=== PATIENT | female | born 1995 | race Caucasian/White ===

== ENCOUNTER 2022-04-24 01:31 | Emergency (ER) | payer BC ==
[2022-04-24] MEDS ORDERED: ONDANSETRON 4 MG/2 ML VIAL ONE (02:58)
[2022-04-24] MEDS ORDERED: FAMOTIDINE 20 MG/2 ML VIAL IV ONE (02:59)
[2022-04-24] MEDS ORDERED: DICYCLOMINE HCL 20 MG/2 ML AMP IM ONE (02:59)
[2022-04-24] MEDS ORDERED: NA CHLORIDE 0.9% 1,000 ML ONE (02:59)
[2022-04-24 03:20] LABS: Hematocrit 46.7 % (36.0-45.0); Lymphocytes % 14.3 % (15.3-44.8); MCV 87.3 fL (80-100); MPV 9.1 fL (7.6-11.3); RBC Red Blood Cell Count 5.35 M/uL (3.86-4.86)
[2022-04-24 03:42] LABS: Albumin 4.6 g/dL (3.4-5.0); Bilirubin Total 0.8 mg/dL (0.2-1.0); Protein, Total 8.5 g/dL (6.4-8.2)
[2022-04-24 03:56] LABS: SARS-COV-2 RT PCR NEGATIVE (NEGATIVE)
[2022-04-24 04:01] LABS: Urine Blood Trace-intact (Negative); Urine Glucose Negative (Negative); Urine Protein 1+ (Negative); Urine Specific Gravity >=1.030 (1.005-1.030); Urine pH 5.5 (5.0-7.0)
[2022-04-24 04:08] LABS: Urine Specific Gravity/Preg >1.030 (1.005-1.030)
[2022-04-24 04:08] LABS: Urine Bacteria <20 /HPF (<20); Urine RBC <5 /HPF (None Seen)
[2022-04-24] MEDS ORDERED: D5 0.45 NS 1,000 ML IV ONE (04:28)
--- NOTE | 2022-04-24 04:56 | ER ---
Nurse's Notes [facility] Name: Sadia Soto Age: 26 yrs Sex: Female : 1995 Arrival Date: 04/24/2022 Time: 01:35 Bed 11 Private MD: Fausto Mo Diagnosis: Abdominal pain, Generalized;Vomiting;Diarrhea, unspecified;Dysuria;Acute cystitis Presentation: 04/24 02:15 Chief complaint: Patient states: I have had severe stomach pain, nausea and vomiting kd3 for 3 days. I cannot keep anything down. I had diarrhea as well but that stopped on Wednesday. I am feeling very weak and sick. 02:15 Method Of Arrival: Wheelchair kd3 02:17 Coronavirus screen: Vaccine status: Patient reports receiving the 2nd dose of the covid kd3 vaccine. Ebola Screen: No symptoms or risks identified at this time. Initial Sepsis Screen: Does the patient meet any 2 criteria? No. Patient's initial sepsis screen is negative. Does the patient have a suspected source of infection? No. Patient's initial sepsis screen is negative. Risk Assessment: Do you want to hurt yourself or someone else? Patient reports no desire to harm self or others. Onset of symptoms was April 24, 2022. 02:17 Acuity: SATYA 3 kd3 Triage Assessment: 02:22 General: Appears uncomfortable, Behavior is calm, cooperative. Pain: Complains of pain kd3 in epigastric area. Neuro: Level of Consciousness is awake, alert, obeys commands, Oriented to person, place, time, situation. GI: Reports cramping, diarrhea, nausea, vomiting. 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 - Social history:: Smoking status: unknown. Screenin:23 [facility] ED Fall Risk Assessment (Adult) History of falling in the last 3 months, kd3 including since admission No falls in past 3 months (0 pts) Confusion or Disorientation No (0 pts) Intoxicated or Sedated No (0 pts) Impaired Gait No (0 pts) Mobility Assist Device Used No (0 pt) Altered Elimination No (0 pt) Score/Fall Risk Level 0 - 2 = Low Risk. Humpty Dumpty Scale Fall Assessment Tool (age< 18yrs) Fall Risk Score/ Level Low Fall Risk: </= 11 points Oriented to surroundings. Abuse screen: Denies threats or abuse. Denies injuries from another. Nutritional screening: No deficits noted. Tuberculosis screening: No symptoms or risk factors identified. Fall Risk No fall in past 12 months (0 pts). No secondary diagnosis (0 pts). No IV (0 pts). Ambulatory Aid- None/Bed Rest/Nurse Assist (0 pts). Gait- Normal/Bed Rest/Wheelchair (0 pts) Mental Status- Oriented to own ability (0 pts). Total Bravo Fall Scale indicates No Risk (0-24 pts). Assessment: 02:26 General: Appears uncomfortable, Behavior is calm, cooperative. Pain: Complains of pain kd3 in epigastric area. Neuro: Level of Consciousness is awake, alert, obeys commands, Oriented to person, place, time, situation. Cardiovascular: Patient's skin is warm and dry. GI: Reports diarrhea, nausea, vomiting. 03:13 GI: Pt is actively vomiting bile. kd3 Vital Signs: 02:17 BP 103 / 78; Pulse 70; Resp 19; Temp 98.6(O); Pulse Ox 100% on R/A; kd3 02:26 Weight 45.36 kg; kd3 03:42 BP 113 / 75; Pulse 79; Resp 16; Pulse Ox 100% on R/A; kd3 04:30 BP 90 / 60; Pulse 68; Resp 17; Pulse Ox 100% on R/A; kd3 05:14 BP 106 / 63; Pulse 71; Resp 17; Pulse Ox 100% on R/A; kd3 ED Course: 01:35 Patient arrived in ED. es 01:35 Fausto Mo DO is Private Physician. es 02:15 Carmel Ledesma, JAMES is Primary Nurse. kd3 02:18 Miquel Farley NP is PHCP. pm1 02:18 Nicholas Parisi MD is Attending Physician. pm1 02:22 Triage completed. kd3 02:23 Arm band placed on right wrist. kd3 02:24 Patient has correct armband on for positive identification. kd3 02:26 No provider procedures requiring assistance completed. kd3 03:12 CBC with Diff Sent. kd3 03:12 CMP Sent. kd3 03:12 Lipase Sent. kd3 03:12 COVID-19/FLU A+B Sent. kd3 04:21 CT Abd/Pelvis - IV Contrast Only In Process Unspecified. EDMS 04:55 Fausto Mo DO is Referral Physician. radha Administered Medications: 03:12 Drug: NS 0.9% 1000 ml Route: IV; Rate: 1 bolus; Site: left forearm; kd3 03:42 Follow up: IV Status: Completed infusion; IV Intake: 1000ml kd3 03:12 Drug: Pepcid (famotidine) 20 mg Route: IVP; Site: left forearm; kd3 03:43 Follow up: Response: No adverse reaction kd3 03:12 Drug: Zofran (Ondansetron) 4 mg Route: IVP; Site: left forearm; kd3 03:42 Follow up: Response: No adverse reaction; Nausea is decreased kd3 03:12 Drug: Bentyl (dicyclomine) 20 mg Route: IM; Site: right deltoid; kd3 03:42 Follow up: Response: No adverse reaction; Pain is decreased kd3 04:30 Drug: D5-1/2 NS 1000 ml Route: IV; Rate: bolus; Site: left forearm; kd3 05:21 Follow up: IV Status: Completed infusion; IV Intake: 1000ml kd3 05:21 Follow up: IV Status: Completed infusion kd3 05:21 Drug: Rocephin (cefTRIAXone) 1 grams Route: IV; Rate: per protocol; Site: left forearm; kd3 05:21 Follow up: IV Status: Completed infusion; IV Intake: 10ml kd3 05:21 Drug: Cipro (ciprofloxacin) 500 mg Route: PO; kd3 05:22 Follow up: Response: No adverse reaction kd3 Medication: 02:24 VIS not applicable for this client. kd3 Intake: 03:42 IV: 1000ml; Total: 1000ml. kd3 05:21 IV: 1000ml; Total: 2000ml. kd3 05:21 IV: 10ml; Total: 2010ml. kd3 Outcome: 04:55 Discharge ordered by . radha 05:22 Patient left the ED. kd3 Signatures: Dispatcher [employer] EDMS Nicholas Parisi MD MD cha Salyer, Edna es Marinas, Patrick, SERVICE DESK ASSOCIATE SERVICE DESK ASSOCIATE pm1 Carmel Ledesma, RN RN kd3 Corrections: (The following items were deleted from the chart) 02:25 02:22 Allergies: No Known Allergies; kd3 kd3
--- NOTE | 2022-04-24 04:56 | EDPHYS ---
Physician Documentation [facility] Name: Sadia Soto Age: 26 yrs Sex: Female : 1995 Arrival Date: 04/24/2022 Time: 01:35 Bed 11 Private MD: [facility] ED Physician Nicholas Parisi HPI: 04/24 02:26 This 26 yrs old Female presents to ER via Wheelchair with complaints of Vomiting, pm1 Abdominal Pain, Headache. 02:26 The patient presents to the emergency department with nausea, vomiting, diarrhea, pm1 abdominal pain, of the epigastric area, described as constant, crampy, and does not radiate. Onset: The symptoms/episode began/occurred 3 day(s) ago. Possible causes: unknown. The symptoms are aggravated by food , The symptoms are alleviated by nothing. Associated signs and symptoms: Pertinent positives: dysuria, headache, Pertinent negatives: Chest pain shortness of breath. Severity of symptoms: in the emergency department the symptoms are unchanged. The patient has not experienced similar symptoms in the past. The patient has not recently seen a physician. Patient with reported bilious vomiting and watery diarrhea for the past 3 days. 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 - Social history:: Smoking status: unknown. ROS: 02:26 Constitutional: Negative for fever, chills, and weight loss, Cardiovascular: Negative pm1 for chest pain, palpitations, and edema, Respiratory: Negative for shortness of breath, cough, wheezing, and pleuritic chest pain. 02:26 Back: Negative for injury and pain. 02:26 MS/Extremity: Negative for injury and deformity, Skin: Negative for injury, rash, and discoloration. 02:26 Abdomen/GI: Positive for abdominal pain, nausea, vomiting, and diarrhea, Negative for constipation. 02:26 : Positive for urinary symptoms. 02:26 Neuro: Positive for headache, Negative for dizziness. 02:26 All other systems are negative. Exam: 02:26 Constitutional: This is a well developed, well nourished patient who is awake, alert, pm1 and in no acute distress. Head/Face: Normocephalic, atraumatic. 02:26 Respiratory: Lungs have equal breath sounds bilaterally, clear to auscultation and percussion. No rales, rhonchi or wheezes noted. No increased work of breathing, no retractions or nasal flaring. 02:26 Back: No spinal tenderness. No costovertebral tenderness. Full range of motion. Skin: Warm, dry with normal turgor. Normal color with no rashes, no lesions, and no evidence of cellulitis. MS/ Extremity: Pulses equal, no cyanosis. Neurovascular intact. Full, normal range of motion. 02:26 Eyes: Exam is negative for acute changes, Periorbital structures: no acute changes, Extraocular movements: no acute changes, Conjunctiva: no acute changes. 02:26 ENT: Exam is negative for acute changes, Mouth: no acute changes, Lips: normal, moist, Oral mucosa: normal, pink and intact, moist. 02:26 Cardiovascular: Exam negative for acute changes, Rate: normal, Rhythm: regular, Pulses: no pulse deficits are appreciated, Heart sounds: normal. 02:26 Abdomen/GI: Exam negative for acute changes, Inspection: abdomen appears normal, Palpation: soft, in all quadrants, moderate abdominal tenderness, in the epigastric area. 02:26 Neuro: Exam negative for acute changes, Orientation: is normal, Mentation: is normal, Motor: is normal, moves all fours. Vital Signs: 02:17 BP 103 / 78; Pulse 70; Resp 19; Temp 98.6(O); Pulse Ox 100% on R/A; kd3 02:26 Weight 45.36 kg; kd3 03:42 BP 113 / 75; Pulse 79; Resp 16; Pulse Ox 100% on R/A; kd3 04:30 BP 90 / 60; Pulse 68; Resp 17; Pulse Ox 100% on R/A; kd3 05:14 BP 106 / 63; Pulse 71; Resp 17; Pulse Ox 100% on R/A; kd3 MDM: 02:19 Patient medically screened. [facility] 03:41 Data reviewed: vital signs. Data interpreted: Pulse oximetry: on room air is 100 %. pm1 Interpretation: normal. 04/24 02:26 Order name: CBC with Diff; Complete Time: 03:21 pm1 04/24 02:26 Order name: CMP; Complete Time: 03:51 pm1 12 02:26 Order name: Lipase; Complete Time: 03:51 pm1 04/24 02:26 Order name: Urine Microscopic Only; Complete Time: 04:31 pm1 04/24 02:26 Order name: COVID-19/FLU A+B; Complete Time: 03:59 pm1 04/24 04:01 Order name: Urine Dipstick-Ancillary; Complete Time: 04:31 EDMS 04/24 02:26 Order name: CT Abd/Pelvis - IV Contrast Only pm1 04/24 04:03 Order name: Urine --Ancillary (enter results); Complete Time: 04:31 ds4 04/24 04:03 Order name: Urine Dipstick-Ancillary EDMS 04/24 02:26 Order name: IV Saline Lock; Complete Time: 03:12 pm1 04/24 02:26 Order name: Labs collected and sent; Complete Time: 03:12 pm1 04/24 02:26 Order name: Urine Dipstick-Ancillary (obtain specimen); Complete Time: 04:03 pm1 04/24 02:26 Order name: Urine Test (obtain specimen); Complete Time: 04:03 pm1 Administered Medications: 03:12 Drug: NS 0.9% 1000 ml Route: IV; Rate: 1 bolus; Site: left forearm; kd3 03:42 Follow up: IV Status: Completed infusion; IV Intake: 1000ml kd3 03:12 Drug: Pepcid (famotidine) 20 mg Route: IVP; Site: left forearm; kd3 03:43 Follow up: Response: No adverse reaction kd3 03:12 Drug: Zofran (Ondansetron) 4 mg Route: IVP; Site: left forearm; kd3 03:42 Follow up: Response: No adverse reaction; Nausea is decreased kd3 03:12 Drug: Bentyl (dicyclomine) 20 mg Route: IM; Site: right deltoid; kd3 03:42 Follow up: Response: No adverse reaction; Pain is decreased kd3 04:30 Drug: D5-1/2 NS 1000 ml Route: IV; Rate: bolus; Site: left forearm; kd3 05:21 Follow up: IV Status: Completed infusion; IV Intake: 1000ml kd3 05:21 Follow up: IV Status: Completed infusion kd3 05:21 Drug: Rocephin (cefTRIAXone) 1 grams Route: IV; Rate: per protocol; Site: left forearm; kd3 05:21 Follow up: IV Status: Completed infusion; IV Intake: 10ml kd3 05:21 Drug: Cipro (ciprofloxacin) 500 mg Route: PO; kd3 05:22 Follow up: Response: No adverse reaction kd3 Disposition: 04:38 Co-signature as Attending Physician, Nicholas Parisi MD I agree with the assessment and [facility] plan of care. Disposition Summary: 04/24/22 04:55 Discharge Ordered Location: Home [facility] Problem: new radha Symptoms: have improved radha Condition: Stable radha Diagnosis - Abdominal pain, Generalized radha - Vomiting radha - Diarrhea, unspecified radha - Dysuria radha - Acute cystitis radha Followup: [facility] - With: - When: 2 - 3 days - Reason: Recheck today's complaints, Continuance of care, Re-evaluation by your physician Discharge Instructions: - Discharge Summary Sheet radha - Dysuria radha - Abdominal Pain, Adult, Bnim-[id number]-Nfnt radha - Diarrhea, Adult, Taai-gg-Ctju radha - Urinary Tract Infection, Adult radha - Urinary Tract Infection, Adult, Uajv-eb-[id number] radha - Vomiting, Adult [facility] Forms: - Medication Reconciliation Form radha - Thank You Letter radha - Antibiotic Education radha - Prescription Opioid Use [facility] Prescriptions: - Zofran 4 mg Oral Tablet - take 1 tablet by ORAL route every 12 hours As needed; 20 tablet; Refills: 0, [facility] Product Selection Permitted - Doxycycline Hyclate 100 mg Oral Tablet - take 1 tablet by ORAL route every 12 hours; 20 tablet; Refills: 0, Product [facility] Selection Permitted - dicyclomine 20 mg Oral Tablet - take 1 tablet by ORAL route 4 times per day; 28 tablet; Refills: 0, Product [facility] Selection Permitted - Cipro 250 mg Oral Tablet - take 1 tablet by ORAL route every 12 hours; 14 tablet; Refills: 0, Product [facility] Selection Permitted Signatures: Dispatcher [employer] EDMS Nicholas Parisi MD MD cha Marinas, Patrick, ROUTE SALES DRIVER ROUTE SALES DRIVER pm1 Carmel Ledesma, RN RN kd3 Corrections: (The following items were deleted from the chart) 02:25 02:22 Allergies: No Known Allergies; kd3 kd3 02:37 02:35 ECG was reviewed by the Attending Physician. pm1 pm1 02:37 02:35 Rate is 131 beats/min. Rhythm is regular, A flutter with No ectopy. QRS Saxe is pm1 Normal. [place] interval is normal. QRS interval is normal. QT interval is normal. No Q waves. T waves are Normal. No ST changes noted. Clinical impression: Atrial Flutter. pm1
[2022-04-24] MEDS ORDERED: CEFTRIAXONE 1000 MG/VIAL ONE (05:03)
[2022-04-24] MEDS ORDERED: CIPROFLOXACIN HCL 500 MG TAB ONE (05:03)
[2022-04-24 05:28] VITALS: TEMP 98.6; O2SAT 100
[2022-04-24 05:31] VITALS: BP 106/63
--- NOTE | 2022-04-24 18:18 | RAD REPORT ---
EXAM DESCRIPTION: CT - Abdomen Pelvis W Contrast - 04/24/2022 6:19 am CLINICAL HISTORY: Epigastric pain COMPARISON: None Available. TECHNIQUE: CT of the abdomen and pelvis performed following IV administration of iodinated contras t. This exam was performed according to our departmental dose-optimization program, which includes au tomated exposure control, adjustment of the mA and/or kV according to patient size and/or use of iter ative reconstruction technique. FINDINGS: Lung Bases: The visualized lung bases are clear. Bones: No destructive bone lesions identified. Abdomen: Liver: The liver has normal size and density. No intrahepatic biliary dilatation. Gallbladder: No calcified gallstones. Spleen, Pancreas, and Adrenal Glands: The spleen, pancreas, and adrenal glands are unremarkable. Kidneys: No hydronephrosis or obstructing calculus. Vasculature: The aorta and IVC have normal caliber and position. The portal vein is patent. The pro ximal visceral and renal arteries are patent. Stomach: The stomach and duodenum have normal course. Other: No free intraperitoneal air. Small amount of free fluid. Postoperative change in the gastr ic region. Pelvis: Bladder: Wall thickening of the urinary bladder. Bowel: No dilated loops of large or small bowel. Appendix: Normal appendix. Pelvis: Uterus is not enlarged. IMPRESSION: 1. Wall thickening of the urinary bladder. This could be seen with cystitis. 2. Small amount of free fluid in the pelvis. Electronically signed by: Jose Roberto Muniz 04/24/2022 4:45 AM [employer]UTION [employer]ER Due to temporary technical issues with the PACS/Fluency reporting system, reports are being signed by the in house radiologists without review as a courtesy to insure prompt reporting. The interpreting radiologist is fully responsible for the content of the report.
== END 2022-04-24 05:22 | disposition home or self-care (01) ==
LOC: ER 01:31
DX: N30.00 Acute cystitis without hematuria (principal); R30.0 Dysuria; R11.10 Vomiting, unspecified; R19.7 Diarrhea, unspecified; Z20.822 Contact with and (suspected) exposure to COVID-19
CPT/HCPCS: 96365; 85025; 36415; 81025; 83690; 80053; 0240U; 74177; 96375; 96372; 99283; Q9967; J0500; J7799; J7030; J2405; 81003; 81015

== ENCOUNTER 2022-07-30 18:00 | Emergency (ER) | payer OTHER, BC ==
[2022-07-30] MEDS ORDERED: DIAZEPAM 5 MG TABLET ONE (18:40)
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
[2022-07-30] MEDS ORDERED: KETOROLAC 30 MG/ML INJ ONE (19:29)
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
[2022-07-30 20:58] VITALS: BP 117/79; TEMP 98.2; O2SAT 99
== END 2022-07-30 20:34 | disposition home or self-care (01) ==
LOC: ER 18:00
DX: S90.31XA Contusion of right foot, initial encounter (principal); S93.601A Unspecified sprain of right foot, initial encounter; V43.52XA Car driver injured in collision with other type car in traffic accident, initial encounter; Y93.9 Activity, unspecified; Y92.410 Unspecified street and highway as the place of occurrence of the external cause; J45.909 Unspecified asthma, uncomplicated; G47.30 Sleep apnea, unspecified